=== PATIENT | female | born 1960 | race Caucasian/White ===

== ENCOUNTER 2020-12-12 14:36 | Emergency (ER) | payer OTHER, SELFPAY ==
[2020-12-12 15:20] VITALS: BP 140/84; PULSE 75; RESP 16; TEMP 36.7; O2SAT 100; BMI 38.4
[2020-12-12 16:43] VITALS: BP 137/76; PULSE 67; RESP 16; O2SAT 100
--- NOTE | 2020-12-12 17:10 | W.ED.BACK ---
HPI - Back Pain/Injury General: Chief Complaint: Back Pain/Injury Stated Complaint: BACK SPASMS Time Seen by Provider: 12/12/20 17:09 History of Present Illness: HPI Narrative: 60-year-old female comes in today with low back pain. Patient reports for the last 2 days she has been doing computer work sitting at a desk hunched over for prolonged periods of time. Patient reports today when she woke up she had increased back pain and discomfort. Patient denies any falls or injury. Patient does have a history of low back pain and is on Celebrex. Patient appears well. Patient appears in mild to moderate pain. Review of Systems General: Reports: 10 or more systems reviewed and unremarkable except in HPI and below Musc: Reports: back pain Physical Exam Const: COMMON NORMALS: no acute distress and patient oriented x3 GENERAL APPEARANCE: cooperative HENMT: COMMON NORMALS: normocephalic and Normal external nose present HEAD & SCALP: normal to inspection and normocephalic NOSE: Normal external nose present Eye: GENERAL EYE: appearance normal, both eyes and all related structures Neck/C-Spine: COMMON NORMALS: full ROM Chest: COMMONS NORMALS: normal inspection of the chest Resp: COMMON NORMALS: normal respiratory effort EFFORT & INSPECTION: Yes able to speak in complete sentences Cardio: COMMON NORMALS: regular rate and regular rhythm RATE: regular rate RHYTHM: regular rhythm GI: COMMON NORMALS: non-tender Back/Pelvis: THORACIC SPINE/UPPER BACK: Yes normal to inspection LUMBAR SPINE/LOWER BACK: Yes lumbar spinal tenderness Lumbar spinal tenderness location: L4 and L5 and Yes paraspinal muscle tenderness Extremity: COMMON NORMALS: normal to inspection Neuro: COMMON NORMALS: patient oriented x3 and moves all extremities Psych: COMMON NORMALS: mental status grossly normal and cooperative Skin: COMMON NORMALS: no rashes or lesions noted GENERAL SKIN EXAM: no rashes or lesions noted Course Vital Signs: Vital signs: Vital Signs Temperature 98.1 F 12/12/20 15:20 Pulse Rate 67 12/12/20 16:43 Respiratory Rate 16 12/12/20 16:43 Blood Pressure 137/76 12/12/20 16:43 Pulse Oximetry 100 12/12/20 16:43 MDM - Back Pain/Injury MDM Narrative: Medical decision making narrative: 60-year-old female comes in with low back pain. On exam she has some tenderness in the L5 L4 area of the lumbar spine midline with also some muscle tenderness in the same area bilaterally. Differential diagnosis includes but not limited to intervertebral disc disease, facet arthropathy, muscle strain. X-rays were deferred at this time as there is no recent injury. Recommended patient try to increase ambulation and stay active as much as possible. Reviewed red flags for patient including difficulty urinating, defecating or numbness and paresthesia in the lower extremities. Patient reports understanding of care plan and need for follow-up or return to the ER. Patient was treated with Toradol and orphenadrine for acute pain. Patient was given a short course of hydrocodone for breakthrough pain and some tizanidine for muscle spasms. Patient reported understanding of care plan and need for follow-up. Discharge Plan Discharge Patient Disposition: Home Clinical Impression: Low back pain Qualifiers: Chronicity: unspecified Back pain laterality: unspecified Sciatica presence: without sciatica Qualified Code(s): M54.5 - Low back pain Condition: Stable Prescriptions: New hydrocodone-acetaminophen 5-325 mg tablet 1 tab PO Q8H PRN (Reason: pain (scale score 7-10)) Qty: 10 RF: 0 tizanidine 4 mg tablet 4 mg PO Q8H PRN (Reason: muscle spasticity) Qty: 10 RF: 0 Discharge Orders: Discharge ED (Routine); Ordered 12/12/20 Ordered By: Asael Hudson Referrals: Alphonso Aguilar MD [Primary Care Provider] - Discharge Diet: Usual diet Discharge Activity: Increase activity as tolerated Patient Instructions: Back Pain (ED), Opioid Safety Activity Restrictions/Additional Instructions: Activity as tolerated, Try to stay as active as you can. Follow-up with primary care in one week. Return to ER for new concerns. Use acetaminophen to control pain. Use hydrocodone and tizanidine for breakthrough pain and muscle spasms, Use ice and heat for further control. Continue Celebrex. Coding Level of Care Code ED [employer]
[2020-12-12] MEDS: HYDROcodone-acetaminophen 5-325 mg Tablet 1 TAB PO (17:45)
[2020-12-12] MEDS: ketorolac 30 mg/mL INJ IM (17:45)
[2020-12-12] MEDS: orphenadrine 30 mg/mL Inj 2 mL 60 MG IM (17:45)
== END 2020-12-12 18:05 | disposition home or self-care (01) ==
PROVIDERS: Emergency Provider Nurse Practitioner Family; PCP Internal Medicine
DX: M54.5 Low back pain (principal)
CPT/HCPCS: 96372; 99283; J1885; J2360

== ENCOUNTER 2022-08-13 13:24 | Outpatient (CLI) | payer OTHER, SELFPAY ==
--- NOTE | 2022-08-13 13:39 | XR_ITS ---
WS: [id number] Exam: XR shoulder RT min 2V* [id number] Date/Time of Exam: 08/13/2022 1:39 PM Reason For Exam: SHOULDER TENDINITIS No fracture or dislocation. Minimal DJD at the AC joint. Normal soft tissues. There are partially vis ualized posterior rods in the thoracic spine. XR/XR shoulder RT min 2V* [id number] IMPRESSION: 1. No fracture or dislocation. Minimal AC joint DJD.
== END 2022-08-13 13:25 | disposition home or self-care (01) ==
LOC: RAD 13:27
PROVIDERS: PCP Internal Medicine; Visit Provider Internal Medicine
DX: M75.81 Other shoulder lesions, right shoulder (principal); M19.011 Primary osteoarthritis, right shoulder
CPT/HCPCS: 73030

== ENCOUNTER 2024-11-22 11:43 | Outpatient (CLI) | payer MEDICARE, OTHER, SELFPAY ==
[2024-11-22 12:37] LABS: Hematocrit 41.2 % (36-47); Hemoglobin 13.90 g/dL (11.27-16.99); Mean Corpuscular HGB Conc 33.7 g/dL (30-55); Mean Corpuscular Hemoglobin 29.1 pg (27-33); Mean Corpuscular Volume 86.2 fl (85-98); Nucleated Red Blood Cells % 0 %; Platelet Count 306 10^3/cmm (157-399); Red Blood Count 4.78 10^6/uL (3.85-5.65); White Blood Count 6.68 10^3/uL (3.29-11.43)
[2024-11-22 12:55] LABS: Alanine Aminotransferase 35 U/L (0-33); Albumin Level 4.5 g/dL (3.5-5.2); Alkaline Phosphatase 87 U/L (35-105); Aspartate Amino Transferase 32 U/L (0-32); Globulin 2.8 g/dL (1.3-4.6); Total Protein 7.3 g/dL (6.6-8.7)
[2024-11-22 13:16] LABS: Hepatitis B Surface Antigen Non-Reactive (Nonreactive)
[2024-11-26 15:17] LABS: Mutated Citrullinated Vimentin <20 U/mL (<20)
== END 2024-11-22 11:44 | disposition home or self-care (01) ==
LOC: LAB 11:50
PROVIDERS: PCP Internal Medicine; Visit Provider Internal Medicine Rheumatology
DX: Z79.899 Other long term (current) drug therapy (principal); M81.0 Age-related osteoporosis without current pathological fracture; M45.9 Ankylosing spondylitis of unspecified sites in spine; H20.023 Recurrent acute iridocyclitis, bilateral; Z15.89 Genetic susceptibility to other disease; Z71.85 Encounter for immunization safety counseling
CPT/HCPCS: 36415; 72100; 72202; 80076; 82306; 82565; 83520; 85025; 85651; 86140; 86200; 86431; 86480; 86704; 86803; 87340; 99205

== ENCOUNTER → 2025-04-04 11:19 | Outpatient (BNVA) | payer MEDICARE, OTHER, SELFPAY | PROVIDERS: PCP Internal Medicine; Visit Provider Internal Medicine Rheumatology | DX: M45.9 Ankylosing spondylitis of unspecified sites in spine (principal); H20.029 Recurrent acute iridocyclitis, unspecified eye; Z15.89 Genetic susceptibility to other disease; Z79.899 Other long term (current) drug therapy; Z71.85 Encounter for immunization safety counseling | CPT/HCPCS: 99214 ==